=== PATIENT | male | born 1975 | race American Indian/Alaskan Native ===

== ENCOUNTER 2019-08-23 06:39 | Day surgery (SDC) | payer BC ==
[~2019-08-23 06:39] MED LIST: SODIUM CHLORIDE 0.9% 500 ML IVPB ONE; SODIUM CHLORIDE 0.9% 500 ML ONE
[2019-08-23] MEDS ORDERED: ASPIRIN EC 325 MG TAB PO ONE (07:18)
[2019-08-23] MEDS ORDERED: cloNIDine 0.1 MG TAB PO ONE (07:58)
[2019-08-23] MEDS ORDERED: cloNIDine 0.1 MG TAB ONE (07:59)
[2019-08-23] MEDS ORDERED: SODIUM CHLORIDE 0.9% 500 ML 500 ML IV SCH ×2 (08:00)
[2019-08-23] MEDS ORDERED: HEPARIN 10,000 UNITS/10 ML VIAL ONE (08:01)
[2019-08-23] MEDS ORDERED: HEPARIN/NS 5000 UNIT/500ML 1,000 ML IR ONE (08:01)
[2019-08-23] MEDS ORDERED: VERAPAMIL 5 MG/2 ML INJ ONE (08:02)
[2019-08-23] MEDS ORDERED: NITROGLYCERIN SYRINGE 3 ML ONE (08:02)
[2019-08-23] MEDS ORDERED: LIDOCAINE (2%) 20 MG/1 ML VIAL 20 ML MDV INFILTRATI ONE (08:02)
[2019-08-23] MEDS ORDERED: MIDAZOLAM 2 MG/2 ML INJ ONE (08:03)
[2019-08-23] MEDS ORDERED: fentaNYL 100 MCG/2 ML INJ ONE (08:03)
--- NOTE | 2019-08-23 10:02 | Cardiac Catherization Report ---
CLINICAL INFORMATION: This is a 43-year-old -[place] gentleman with obesity, mild renal insufficiency, hypertension with abnormal stress test, here for left heart catheterization. ORDERING PHYSICIAN: Dr. Percy Frazier. Procedure is being done by Dr. Mckenna. The patient was done with moderate sedation. Total sedation time was 15 minutes, started at 9:30 a.m., finished at 9:45 a.m. Procedure was done via the right radial artery, sterile technique, local anesthesia, 6-[place] radial sheath inserted. Left system engaged with JL3.5 catheter, left main is large and patent, bifurcates into large LAD that is patent and ramus is a [id number] caliber was patent. Circumflex is a large caliber vessel, is patent, then bifurcates into a medium caliber OM1, OM2 that are patent. Left dominant system. Diagonal 1 is patent. RCA is a small nondominant vessel, is patent. LV gram shows normal LV function, LVEDP of 45-55 mmHg, LV was 212/49. Aortic is 210/148. No gradient across the aortic valve. A 5-[place] catheters all taken over guidewire, a 6-[place] radial sheath was discontinued. Radial dressing applied. No hematoma, no bleeding. SUMMARY: Left main patent, LAD patent, diagonal patent, ramus large patent, circumflex large, dominant, patent, OM1, OM2 patent. LPDA is small patent. RCA is small and patent, normal LV function with elevated left end-diastolic pressure of 45-55 mmHg. Continue IV fluids. Discussed in detail with the patient and the patient's and primary senior product development manager. JOB# [id number] RASHAAD/MALINDA
--- NOTE | 2019-08-23 11:47 | Short Stay Summary ---
Short Stay Documentation Date of service: 08/23/19 - History H&P: obtained from office - Allergies and Medications Current Medications: Allergies No Known Allergies Allergy (Verified 08/23/19 07:17) Home Medications Medication Instructions Recorded Confirmed Last Taken Type Chlorthalidone [Thalitone] 25 mg PO DAILY 08/23/19 08/23/19 08/21/19 History 25 mg Glyburide-Metformin 5-500 mg 500 mg PO BID 08/23/19 08/23/19 08/21/19 History 500 mg Losartan [Cozaar] 100 mg PO DAILY 08/23/19 08/23/19 08/21/19 History 100 mg NIFEdipine [Nifedipine ER] 90 mg PO DAILY 08/23/19 08/23/19 08/21/19 History 90 mg Semaglutide [Ozempic] 1.5 ml SUB-Q 1XW 08/23/19 08/23/19 08/19/19 History 1.5ml Active Medications Sodium Chloride (Nacl 0.9% 500 Ml) 500 mls @ 50 mls/hr IV DIRECT GAGAN Stop: 08/23/19 17:59 Last Admin: 08/23/19 09:43 Dose: 10 mls Documented by: Sodium Chloride (Nacl 0.9% 500 Ml) 500 mls @ 125 mls/hr IV DIRECT GAGAN Last Admin: 08/23/19 08:00 Dose: 125 mls/hr Documented by: - Brief post op/procedure progress note Date of procedure: 08/23/19 Pre-op diagnosis: abnormal stress test Post-op diagnosis: same Procedure: C- see dictated cath report Anesthesia: local Estimated blood loss: none Condition: stable - Disposition Condition at discharge: Good Disposition: [id number] TO HOME OR SELFCARE - Discharge Diagnoses (1) HTN (hypertension) Status: Chronic (2) Normal coronary angiogram Status: Chronic Short Stay Discharge Plan Activity: advance as tolerated Diet: low salt Wound: open to air, keep clean and dry, per your surgeon's advice Follow up with: MIKAYLA SONG MD [Primary Care Provider] - 7 Days
[2019-08-23 13:46] VITALS: BP 163/98
== END 2019-08-23 14:00 | disposition home or self-care (01) ==
LOC: CATHLABREC 06:39
PROVIDERS: ATTEND Internal Medicine Cardiovascular Disease
DX: R94.39 Abnormal result of other cardiovascular function study (principal); I10 Essential (primary) hypertension; E66.9 Obesity, unspecified; E78.00 Pure hypercholesterolemia, unspecified; N28.89 Other specified disorders of kidney and ureter; Z79.899 Other long term (current) drug therapy
CPT/HCPCS: 36415; 82565; 82962; 84520; 93005; 93458; 99156; C1894; J1644; J2250; J3010; J7040; Q9967